=== PATIENT | female | born 1945 | race Caucasian/White ===

== ENCOUNTER 2017-01-24 20:05 | Inpatient (IN) | payer MEDICARE ==
[2017-01-23 23:45] VITALS: BP 153/71; PULSE 81; RESP 16; TEMP 96.6; O2SAT 95
[~2017-01-24] VITALS: Ht 157.5 cm; Wt 93.6 kg
[2017-01-24 20:14] VITALS: BP 165/82; PULSE 77; RESP 18; TEMP 98; O2SAT 96
[2017-01-24] MEDS ORDERED: NOVOLOGP2 SQ (20:29)
[2017-01-24] MEDS ORDERED: VITA200013 (20:29)
[2017-01-24] MEDS ORDERED: POTA10TA2 PO (20:29)
[2017-01-24] MEDS ORDERED: CART180C PO (20:29)
[2017-01-24] MEDS ORDERED: ALTA5CAP4 PO (20:29)
[2017-01-24] MEDS ORDERED: ASPI1TAB73 PO (20:29)
[2017-01-24] MEDS ORDERED: TOPR100T PO (20:29)
[2017-01-24] MEDS ORDERED: OMEP40CA2 PO (20:29)
--- NOTE | 2017-01-24 20:53 | PD ---
HPI Chief Complaint: Fall Time Seen by Provider: 20:08 Travel History International Travel<30 days: No Contact w/Intl Traveler<30days: No Traveled to known affect area: No History of Present Illness HPI The patient is a 72 year old female who presents to the [facility] emergency department with a history of stepping backward off of a curb when her shoe turned causing her to twist her ankle and fall to the ground. The patient had notable deformity of the right ankle with severe pain and tingling in her toes. Ambulance services were called and the patient was transported into this facility. The patient is placed in a box splint prior to arrival. The patient denies hitting her head or losing consciousness. She denies being on any blood thinners. She denies having any other extremity injuries associated with this. On review of systems, she denies any chest pain, chest pressure, shortness of breath, recent fevers, cough, congestion, rhinorrhea, vomiting, diarrhea, abdominal pain, urinary symptoms, or other neurologic symptoms. [facility] Past Medical History Narrative Medical The patient's past medical history is significant for diabetes mellitus, hypertension, history of a basal cell carcinoma removed from the nose, history of SVT,, hyperlipidemia, and acid reflux Heart Rhythm Problems: Yes (SVT) Cancer: Yes (SKIN) Diabetes: Yes (TYPE 2) Patient Takes Glucophage: No Diminished Hearing: No GERD: Yes Hypertension: Yes Tetanus Vaccination: Unknown Influenza Vaccination: No Ectopic : Yes Past Surgical History Narrative Surgical The patient's past surgical history is significant for basal cell skin carcinoma removal from the nose, tonsillar and adenoidectomy, breast reduction, cataract surgery. Eye Surgery: Yes (CATARACTS) Other Surgery: Yes (TNA, BREAST REDUCTION) Social History Alcohol Use: No Tobacco Use: No Substance Use: No Allergies-Medications (Allergen,Severity, Reaction): Coded Allergies: Egg Allergy (Verified Allergy, Severe, 01/24/17) Penicillin (Verified Allergy, Severe, 01/24/17) Sublimaze (Verified Allergy, Severe, 01/24/17) Reported Meds & Prescriptions Reported Meds & Active Scripts Active Reported Vitamin D (Cholecalciferol) 2,000 Unit Cap Novolog Inj (Insulin Aspart) 1,000 Unit/10 Ml Vial 12 Units SQ ACHS Max dose at bedtime ( ) units; sugars less than 70,(0) units; sugars 150-199,(2) units; sugars 200-249,(4) units; sugars 250-299,(7) units; sugars 300-349,(10) units; sugars greater than 349,(12)units Matias Aspirin EC Low Dose (Aspirin) 81 Mg Tabdr 81 Mg PO ONCE Altace (Ramipril) 5 Mg Cap 5 Mg PO DAILY Cartia Xt (Diltiazem ER 24 HR) 180 Mg Caper 180 Mg PO DAILY Potassium Chloride ER (Potassium Chloride) 10 Meq Tab 10 Meq PO DAILY Omeprazole 40 Mg Cap 40 Mg PO DAILY Toprol XL (Metoprolol Succinate) 100 Mg Tab 100 Mg PO DAILY Review of Systems Except as stated in HPI: all other systems reviewed are Neg General / Constitutional: No: Fever Eyes: No: Visual changes HENT: No: Headaches Cardiovascular: No: Chest Pain or Discomfort Respiratory: No: Shortness of Breath Gastrointestinal: No: Abdominal Pain Genitourinary: No: Dysuria Musculoskeletal: Positive: Arthralgias, Limited ROM, Edema, Pain Skin: No Rash Neurologic: No: Weakness Psychiatric: No: Depression Endocrine: No: Polydipsia Hematologic/Lymphatic: No: Easy Bruising Physical Exam Narrative General: The patient is well-developed well-nourished female, uncomfortable appearing on arrival related to right ankle pain. Head and Neck exam: Head is normocephalic atraumatic. Eyes: EOMI, pupils are equal round and reactive to light. Nose: Midline septum with pink mucous membranes Mouth: Dentition unremarkable. Moist mucus membranes. Posterior oropharynx is not erythematous. No tonsillar hypertrophy. Uvula midline. Airway patent. Neck: No palpable lymphadenopathy. No nuchal rigidity. No thyromegaly. Cardiovascular: Regular rate and rhythm without murmurs, gallops, or rubs. Lungs: Clear to auscultation bilaterally. No wheezes, rhonchi, or rales. Abdomen: Soft, without tenderness to palpation in all 4 quadrants of the abdomen. No guarding, rebound, or rigidity. Normal bowel sounds are audible. Extremities: No clubbing, cyanosis, or edema, except an area of interest. 2+ pulses in all 4 extremities. The patient has a box splint in place along the right lower extremity, the patient has deformity noted, with tenderness on palpation of the distal ankle. The patient has 2+ dorsalis pedis pulse. The patient has less than 3 second capillary refill. The patient reports having tingling to her toes. The patient is able to flex and extend her toes on examination. The patient has tenting of the skin related to the deformity and dislocation noted along the medial aspect of the right ankle. Back: No spinous process tenderness to palpation. No costovertebral angle tenderness to palpation. Neurologic Exam: Grossly nonfocal. Skin Exam: No rash noted. Intact skin that is warm and dry. Data Data Last Documented VS Vital Signs Date Time Temp Pulse Resp B/P Pulse Ox O2 Delivery O2 Flow Rate FiO2 01/24/17 21:10 98 3.00 01/24/17 21:10 Nasal Cannula 01/24/17 20:14 98.0 77 18 165/82 Orders Ankle, Limited (Ap&Lat) (01/24/17 20:15) Ice/Cold Pack (01/24/17 20:15) Electrocardiogram (01/24/17 21:05) Complete Blood Count With Diff (01/24/17 21:05) Basic Metabolic Panel (Bmp) (01/24/17 21:05) Prothrombin Time / Inr (Pt) (01/24/17 21:05) Act Partial Throm Time (Ptt) (01/24/17 21:05) Chest, Single Ap (01/24/17 21:05) Iv Access Insert/Monitor (01/24/17 21:05) Ecg Monitoring (01/24/17 21:05) Oximetry (01/24/17 21:05) Ankle, Complete ([id number]) (01/24/17 ) Propofol 200 Mg/20 Ml Inj (Diprivan 200 (01/24/17 21:15) Ondansetron Inj (Zofran Inj) (01/24/17 21:08) Ondansetron Inj (Zofran Inj) (01/24/17 21:45) Admit Order (Ed Use Only) (01/24/17 21:46) Consult Orthopedic (01/24/17 ) Fiberglass Short Leg Splint Ad (01/24/17 ) Fiberglass Sugartong Sp Ad Sl (01/24/17 ) Ice Cuff (01/24/17 ) Labs Laboratory Tests Test 01/24/17 21:15 White Blood Count 13.7 TH/MM3 Red Blood Count 4.42 MIL/MM3 Hemoglobin 13.1 GM/DL Hematocrit 37.1 % Mean Corpuscular Volume 84.1 FL Mean Corpuscular Hemoglobin 29.6 PG Mean Corpuscular Hemoglobin 35.2 % Concent Red Cell Distribution Width 13.1 % Platelet Count 322 TH/MM3 Mean Platelet Volume 7.6 FL Neutrophils (%) (Auto) 65.7 % Lymphocytes (%) (Auto) 25.0 % Monocytes (%) (Auto) 6.7 % Eosinophils (%) (Auto) 1.9 % Basophils (%) (Auto) 0.7 % Neutrophils # (Auto) 9.0 TH/MM3 Lymphocytes # (Auto) 3.4 TH/MM3 Monocytes # (Auto) 0.9 TH/MM3 Eosinophils # (Auto) 0.3 TH/MM3 Basophils # (Auto) 0.1 TH/MM3 CBC Comment DIFF FINAL Differential Comment Prothrombin Time 10.7 SEC Prothromb Time International 1.0 RATIO Ratio Activated Partial 24.3 SEC Thromboplast Time Sodium Level 138 MEQ/L Potassium Level 3.5 MEQ/L Chloride Level 104 MEQ/L Carbon Dioxide Level 25.2 MEQ/L Anion Gap 9 MEQ/L Blood Urea Nitrogen 12 MG/DL Creatinine 0.98 MG/DL Estimat Glomerular Filtration 56 ML/MIN Rate Random Glucose 122 MG/DL Calcium Level 9.1 MG/DL MDM Medical Decision Making Medical Screen Exam Complete: Yes Emergency Medical Condition: Yes Medical Record Reviewed: Yes Interpretation(s) Last Impressions Ankle X-Ray 01/24/172014 Signed Impressions: Service Date/Time: Tuesday, January 24, 2017 20:23 - CONCLUSION: 1. Fracture dislocation of the right ankle. Ritchie Vieira MD Differential Diagnosis Ankle dislocation, versus fracture, versus neurovascular injury of the ankle Narrative Course During the course of the patients emergency department visit, the patients history, examination, and differential diagnosis were reviewed with the patient. The patient had IV access obtained and blood work sent for analysis. The patient was placed on a media monitor with oximetry and blood pressure monitoring. The patient had an EKG done that shows a sinus rhythm heart rate of 85, nonspecific T-wave abnormalities, no acute ST segment elevation, T waves are inverted in lead 3, V1. The patient was initially provided normal saline IV fluids. The patient was provided propofol for sedation for relocation. The patients laboratory studies were reviewed and remarkable for a white count of 13.7, hemoglobin 13.1, platelets 322 with an unremarkable differential, BMP is remarkable for glucose of 122. PT 10.7, PTT 24.3. Radiology studies were reviewed and remarkable for a right ankle film that shows a fracture dislocation. The patient was provided procedural sedation for closed reduction of her right ankle fracture dislocation. The patient tolerated the procedure well. The patient was placed in a splint. Postreduction films revealed realignment of the fracture fragments and dislocated joint. The patient's case was discussed with orthopedic physician who recommended consultation with Dr. Middleton in the morning. The patients results were discussed with the patient, including the plan of care. I explained that further testing and/ or monitoring is indicated based on the patients history, examination, and/ or laboratory findings. Therefore, I recommended admission for additional evaluation. The patient expressed understanding and was agreeable with this plan. The patient was admitted to the hospital in stable condition and sent to a bed under the care of the [facility] hospitalist service. Procedures Procedure Narrative After the risks and benefits were discussed the following procedure was performed: MODERATE SEDATION: The patient was placed on a media monitor and pulse oximetry. An ambu bag and suction was immediately available at bedside. The patient was monitored by the nurse. Oxygen saturation , heart rate and blood pressure were monitored. Procedural sedation was acheived using propofol 40 mg times one dose. The patient was observed until awake and alert. Procedural Sedation time in attendance was 20 minutes. Closed reduction right ankle dislocation associated with fracture: Gentle traction was applied to the patient's foot while the patient's proximal leg was stabilized by the master motorcycle technician. The patient's fracture fragments and dislocation were easily reduced. The patient was placed in a posterior long leg splint. Post reduction x-rays revealed better alignment of the fracture fragments. Physician Communication Physician Communication I Spoke to Dr. Block regarding this patient's case. He recommended that the patient be admitted to the hospitalist service and not a consultation be placed with Dr. Middleton in the morning. I spoke to Dr. Pena regarding this patient's case. He did agree to admit the patient for further evaluation and treatment at this time. Diagnosis Primary Impression: Fracture dislocation of right ankle Qualified Code: S82.891A - Fracture dislocation of right ankle, closed, initial encounter Admitting Information Admitting Physician Requests: Admit Annabelle Duke MD January 24, 2017 20:53
--- NOTE | 2017-01-24 21:00 | RADRPT ---
EXAM DATE/TIME: 01/24/2017 20:23 [facility] COMPARISON: No previous studies available for comparison. INDICATIONS : Right ankle pain, fell MEDICAL HISTORY : None. SURGICAL HISTORY : None. ENCOUNTER: Initial ACUITY: 1 day PAIN SCORE: 8/10 LOCATION: Right Ankle FINDINGS: Two view examination was performed of the right ankle. There is medial and anterior dislocation of t he distal tibia with slightly comminuted fractures of the distal tibia and fibula. CONCLUSION: 1. Fracture dislocation of the right ankle. Ritchie Vieira MD on January 24, 2017 at 20:56 Board Certified Radiologist. This report was verified electronically.
[2017-01-24] MEDS ORDERED: ONDANSETRON HCL 4 MG/2 ML VIAL ONE (21:08)
[2017-01-24 21:10] VITALS: O2SAT 98
[2017-01-24] MEDS ORDERED: PROPOFOL 200 MG/20 ML AMP IV ONE (21:15)
[2017-01-24 21:30] LABS: BASOPHIL # 0.1 TH/MM3 (0-0.2); BASOPHIL % 0.7 % (0.0-2.0); EOSINOPHIL # 0.3 TH/MM3 (0-0.4); EOSINOPHIL % 1.9 % (0.0-4.0); HEMATOCRIT 37.1 % (35.0-46.0); HEMO FLAGS DIFF FINAL; LYMPHOCYTE # 3.4 TH/MM3 (1.0-4.8); MEAN CELL VOLUME 84.1 FL (80.0-100.0); MEAN CORPUSCULAR HEMOGLOBIN 29.6 PG (27.0-34.0); MEAN CORPUSCULAR HGB CONC 35.2 % (32.0-36.0); MONO % 6.7 % (0.0-8.0); NEUT % 65.7 % (16.0-70.0); PLATELET COUNT 322 TH/MM3 (150-450); RED BLOOD COUNT 4.42 MIL/MM3 (4.00-5.30); RED CELL DISTRIBUTION WIDTH 13.1 % (11.6-17.2); WHITE BLOOD COUNT 13.7 TH/MM3 (4.0-11.0)
[2017-01-24 21:42] LABS: APTT (PATIENT) 24.3 SEC (24.3-30.1); PROTHROMBIN TIME - PATIENT 10.7 SEC (9.8-11.6)
[2017-01-24] MEDS ORDERED: ONDANSETRON HCL 4 MG/2 ML VIAL IV ONE ×2 (21:45→22:30)
[2017-01-24] MEDS ORDERED: MORPHINE SULFATE 4 MG/ML INJ IV PUSH ONE (22:00)
[2017-01-24 22:03] LABS: BICARBONATE 25.2 MEQ/L (21.0-32.0); POTASSIUM 3.5 MEQ/L (3.5-5.1)
--- NOTE | 2017-01-24 22:29 | RADRPT ---
EXAM DATE/TIME: 01/24/2017 21:37 [facility] COMPARISON: No previous studies available for comparison. INDICATIONS : Short of breath. MEDICAL HISTORY : None. SURGICAL HISTORY : None. ENCOUNTER: Initial ACUITY: 1 day PAIN SCORE: 0/10 LOCATION: Bilateral chest FINDINGS: A single view of the chest demonstrates the lungs to be symmetrically aerated without evidence of mas s, infiltrate or effusion. The cardiomediastinal contours are unremarkable. Osseous structures are intact. CONCLUSION: No acute disease. Ritchie Vieira MD on January 24, 2017 at 22:27 Board Certified Radiologist. This report was verified electronically.
--- NOTE | 2017-01-24 22:33 | RADRPT ---
EXAM DATE/TIME: 01/24/2017 21:38 [facility] COMPARISON: No previous studies available for comparison. INDICATIONS : Post reduction, right ankle. MEDICAL HISTORY : None. SURGICAL HISTORY : None. ENCOUNTER: Subsequent ACUITY: 1 day PAIN SCORE: 8/10 LOCATION: Right ankle FINDINGS: Three view exam was performed of the right ankle. There is a fracture of the medial and lateral malle olus with subluxation medially of the distal tibia. Overlying cast. CONCLUSION: 1. Bimalleolar fracture with medial subluxation of the tibia. Ritchie Vieira MD on January 24, 2017 at 22:30 Board Certified Radiologist. This report was verified electronically.
[2017-01-24 22:40] VITALS: RESP 18; O2SAT 97
[2017-01-24] MEDS ORDERED: SODIUM CHLOR 0.9% 1000 ML INJ 1,000 ML IV SCH (22:47)
[2017-01-24] MEDS ORDERED: NALOXONE HCL 0.4 MG/ML AMP IV PRN (23:00)
[2017-01-24] MEDS ORDERED: MORPHINE SULFATE 4 MG/ML INJ IV PUSH PRN (23:00)
[2017-01-24] MEDS ORDERED: ONDANSETRON HCL 4 MG/2 ML VIAL IVP PRN (23:00)
[2017-01-24] MEDS ORDERED: SODIUM CHLORIDE 0.9% FLUSH 10 ML FLUSH IV FLUSH PRN (23:00)
[2017-01-24] MEDS: DEXTROSE 5% IN WATE 1000ML INJ 1,000 ML IV SCH (23:15)
[2017-01-24] MEDS ORDERED: GLUCAGON 1 MG/ML VIAL OTHER PRN (23:15)
[2017-01-24] MEDS ORDERED: DEXTROSE 50% IN WATER 50 ML VIAL(D50) IV PRN (23:15)
[2017-01-24] MEDS ORDERED: HYDROmorphone HCL PF 1 MG/ML VIAL IV PUSH PRN (23:15)
--- NOTE | 2017-01-24 23:20 | HHI.HP ---
[facility] Elisha Cabrera MD Admission Diagnosis right ankle fracture dislocation s/p fall Diagnoses: Chief Complaint: right ankle pain Travel History International Travel<30 Days: No Contact w/Intl Traveler <30 Da: No Traveled to Known Affected Are: No History of Present Illness The patient is a 72 year old female patient with past medical history which includes diabetes mellitus insulin-dependent, hypertension, history of a basal cell carcinoma removed from the nose, history of SVT, hyperlipidemia, and acid reflux. Patient reports she stepped backward off of a curb when her shoe turned causing her to twist her ankle and fall to the ground. Per ER documentation the patient had notable deformity of the right ankle with severe pain and tingling in her toes. The patient is currently in a box splint. Reports pain is tolerable 4 out of 10 at this point after the morphine. Patient however has had nausea and vomiting after the morphine. Patient reports intact sensation left lower extremity. The patient denies hitting her head or losing consciousness during the fall. Patient also denies any chest pain, shortness of breath, fevers chills cough congestion changes in appetite changes in weight. Review of Systems Except as stated in HPI: all other systems reviewed are Neg Past Family Social History Past Medical History diabetes mellitus, hypertension, history of a basal cell carcinoma removed from the nose, history of SVT, hyperlipidemia, and acid reflux Past Surgical History basal cell skin carcinoma removal from the nose, tonsillar and adenoidectomy, breast reduction, cataract surgery. Reported Medications Vitamin D (Cholecalciferol) 2,000 Unit Cap Novolog Inj (Insulin Aspart) 1,000 Unit/10 Ml Vial 12 Units SQ ACHS Max dose at bedtime ( ) units; sugars less than 70,(0) units; sugars 150-199,(2) units; sugars 200-249,(4) units; sugars 250-299,(7) units; sugars 300-349,(10) units; sugars greater than 349,(12)units Matias Aspirin EC Low Dose (Aspirin) 81 Mg Tabdr 81 Mg PO ONCE Altace (Ramipril) 5 Mg Cap 5 Mg PO DAILY Cartia Xt (Diltiazem ER 24 HR) 180 Mg Caper 180 Mg PO DAILY Potassium Chloride ER (Potassium Chloride) 10 Meq Tab 10 Meq PO DAILY Omeprazole 40 Mg Cap 40 Mg PO DAILY Toprol XL (Metoprolol Succinate) 100 Mg Tab 100 Mg PO DAILY Allergies: Coded Allergies: Egg Allergy (Verified Allergy, Severe, 01/24/17) Penicillin (Verified Allergy, Severe, 01/24/17) Sublimaze (Verified Allergy, Severe, 01/24/17) Active Ordered Medications Current Medications Medications (Trade) Dose Ordered Sig/Eleanor Route Start Time Stop Time Status Last Admin (NS 1000 ml Inj) 1,000 ml @ 42 mls/hr [id number] IV 01/24/17 22:47 (NS Flush) 2 ml UNSCH PRN IV FLUSH 01/24/17 23:00 (NS Flush) 2 ml BID IV FLUSH 01/25/17 09:00 (Tylenol) 650 mg Q4H PRN PO 01/24/17 23:00 (Zofran Inj) 4 mg Q6H PRN IVP 01/24/17 23:00 (Colace) 100 mg Q12HR PO 01/25/17 09:00 (Narcan Inj) 0.4 mg UNSCH PRN IV 01/24/17 23:00 (Morphine Inj) 2 mg Q4HR PRN IV PUSH 01/24/17 23:00 Family History Father at 85 secondary to melanoma Mother in 80s secondary to Alzheimer's Patient reports that grandmother had an [place] in her 80s Social History Patient lives alone in her recently in September of this year Rare EtOH use approximally 2-3 times per year Denies tobacco use now or in the past Denies illicit drug use now or in the past Physical Exam Vital Signs Vital Signs Date Time Temp Pulse Resp B/P Pulse Ox O2 Delivery O2 Flow Rate FiO2 01/24/17 22:40 18 97 Room Air 01/24/17 21:10 98 3.00 01/24/17 21:10 98 01/24/17 21:10 98 Nasal Cannula 3.00 01/24/17 20:14 98.0 77 18 165/82 96 Room Air Physical Exam GENERAL: This is a well-nourished, well-developed patient, in no apparent distress. SKIN: No rashes, ecchymoses or lesions. Cool and dry. With splint in place right lower extremity HEAD: Atraumatic. Normocephalic. No temporal or scalp tenderness. EYES: Extraocular motions intact. No scleral icterus. No injection or drainage. CARDIOVASCULAR: Regular rate and rhythm without murmurs, gallops, or rubs. RESPIRATORY: Clear to auscultation. Breath sounds equal bilaterally. No wheezes , rales, or rhonchi. GASTROINTESTINAL: Abdomen soft, non-tender, nondistended. No hepato-splenomegaly , or palpable masses. No guarding. MUSCULOSKELETAL: Extremities without clubbing, cyanosis, or edema. No joint tenderness, effusion, or edema noted. No calf tenderness. Negative Homans sign bilaterally. Splint in place right lower extremity with brisk cap refill and intact sensation NEUROLOGICAL: Awake and alert. No focal deficits identified Motor and sensory grossly within normal limits. Five out of 5 muscle strength in all muscle groups , with the exception of right lower extremity splint in place- patient is able to wiggle toes and has intact sensation right lower extremity. Normal speech. Laboratory Laboratory Tests Test 01/24/17 21:15 White Blood Count 13.7 Red Blood Count 4.42 Hemoglobin 13.1 Hematocrit 37.1 Mean Corpuscular Volume 84.1 Mean Corpuscular Hemoglobin 29.6 Mean Corpuscular Hemoglobin 35.2 Concent Red Cell Distribution Width 13.1 Platelet Count 322 Mean Platelet Volume 7.6 Neutrophils (%) (Auto) 65.7 Lymphocytes (%) (Auto) 25.0 Monocytes (%) (Auto) 6.7 Eosinophils (%) (Auto) 1.9 Basophils (%) (Auto) 0.7 Neutrophils # (Auto) 9.0 Lymphocytes # (Auto) 3.4 Monocytes # (Auto) 0.9 Eosinophils # (Auto) 0.3 Basophils # (Auto) 0.1 CBC Comment DIFF FINAL Differential Comment Prothrombin Time 10.7 Prothromb Time International 1.0 Ratio Activated Partial 24.3 Thromboplast Time Sodium Level 138 Potassium Level 3.5 Chloride Level 104 Carbon Dioxide Level 25.2 Anion Gap 9 Blood Urea Nitrogen 12 Creatinine 0.98 Estimat Glomerular Filtration 56 Rate Random Glucose 122 Calcium Level 9.1 Result Diagram: 01/24/17211401/24/172114 Imaging Last Impressions Chest X-Ray 01/24/172104 Signed Impressions: Service Date/Time: Tuesday, January 24, 2017 21:37 - CONCLUSION: No acute disease. Ritchie Vieira MD Ankle X-Ray 01/24/172014 Signed Impressions: Service Date/Time: Tuesday, January 24, 2017 20:23 - CONCLUSION: 1. Fracture dislocation of the right ankle. Ritchie Vieira MD Assessment and Plan Problem List: (1) Fracture dislocation of right ankle ICD Code: S82.891A Status: Acute Assessment and Plan The patient is a 72 year old female patient with past medical history which includes diabetes mellitus insulin-dependent, hypertension, history of a basal cell carcinoma removed from the nose, history of SVT,, hyperlipidemia, and acid reflux. Patient reports she stepped backward off of a curb when her shoe turned causing her to twist her ankle and fall to the ground. Per ER documentation the patient had notable deformity of the right ankle with severe pain and tingling in her toes. Right ankle fracture and dislocation Right ankle x-ray reviewed and reveals: Fracture with dislocation of the right ankle Bedside Closed reduction right ankle dislocation associated with fracture by ER physician patient currently in splint ER physician discussed with Dr. Block orthopedic surgery Patient nothing by mouth after midnight consult placed orthopedic surgery Dilaudid IV for pain as patient is having nausea and vomiting with morphine Diabetes mellitus type 1 chronic Accu-Cheks before meals at bedtime with low-dose sliding scale insulin coverage D5 normal saline at 42 cc per hour this patient is nothing by mouth Other chronic stable medical conditions include hypertension, SVT, GERD continue home medications as indicated DVT prophylaxis with heparin subQ Discussed with ER physician, nursing, patient, son at bedside and Dr. Pena Physician Certification 2 Midnight Certification Type: Admission for Inpatient Services Order for Inpatient Services The services are ordered in accordance with Medicare regulations or non- Medicare payer requirements, as applicable. In the case of services not specified as inpatient-only, they are appropriately provided as inpatient services in accordance with the 2-midnight benchmark. Estimated LOS (days): 3 days is the estimated time the patient will need to remain in the hospital, assuming treatment plan goals are met and no additional complications. Post-Hospital Plan: Home Problem Qualifiers (1) Fracture dislocation of right ankle: Qualified Code: S82.891A - Fracture dislocation of right ankle, closed, initial encounter Adalgisa Eastman January 24, 2017 23:20 initial encounter Adalgisa Eastman January 24, 2017 23:20
[2017-01-24 23:50] VITALS: BP 153/71; PULSE 81; RESP 16; TEMP 96.6; O2SAT 95
[2017-01-25] MEDS: HEPARIN SODIUM - SQ 10,000 UNITS/ML VIAL SQ SCH ×3 (01:00→17:00)
[2017-01-25] MEDS ORDERED: LACTATED RINGER'S 1000 ML IV PRN (01:15)
[2017-01-25] MEDS ORDERED: CHLORHEXIDINE GLUCONATE 2 % 1 PACK (2 CLOTHS) TOPICAL PRN (01:15)
[2017-01-25] MEDS ORDERED: POVIDONE IODINE 5% (ANTISEPSIS KIT) 4 APPLICATIONS EACH NARE PRN (01:15)
[2017-01-25 04:00] VITALS: BP 135/67; PULSE 89; RESP 17; TEMP 96.9; O2SAT 96
[2017-01-25] MEDS ORDERED: METOCLOPRAMIDE HCL 10 MG/2 ML VIAL IV PUSH ONE (04:45)
--- NOTE | 2017-01-25 06:39 | PD.ORT.PN ---
Subjective Subjective Remarks s/p fall at home right ankle pain no other complaints. Objective Vitals Vital Signs Date Time Temp Pulse Resp B/P Pulse Ox O2 Delivery O2 Flow Rate FiO2 01/25/17 04:00 96.9 89 17 135/67 96 01/24/17 23:50 96.6 81 16 153/71 95 01/24/17 22:40 18 97 Room Air 01/24/17 21:10 98 3.00 01/24/17 21:10 98 01/24/17 21:10 98 Nasal Cannula 3.00 01/24/17 20:14 98.0 77 18 165/82 96 Room Air I/O 01/24/17 01/24/17 01/24/17 01/25/17 01/25/17 01/25/17 07:00 15:00 23:00 07:00 15:00 23:00 Intake Total 0 ml Balance 0 ml Intake Oral 0 ml # Voids 1 Result Diagram: 01/24/17211401/24/172114 Other Results Laboratory Tests Test 01/24/17 21:15 Prothrombin Time 10.7 SEC (9.8-11.6) Prothromb Time International 1.0 RATIO Ratio Imaging Last 24 hours Impressions Chest X-Ray 01/24/172104 Signed Impressions: Service Date/Time: Tuesday, January 24, 2017 21:37 - CONCLUSION: No acute disease. Ritchie Vieira MD Ankle X-Ray 01/24/172014 Signed Impressions: Service Date/Time: Tuesday, January 24, 2017 20:23 - CONCLUSION: 1. Fracture dislocation of the right ankle. Ritchie Vieira MD Objective Remarks RLE: +short leg splint. NVI Assessment & Plan Assessment and Plan 1) Right Trimalleolar Ankle Fx -npo -consents -surgery today Dmitry Erickson January 25, 2017 06:39
[2017-01-25] MEDS ORDERED: CALCTAB19 PO (06:41)
[2017-01-25] MEDS ORDERED: VITA2000 PO (06:41)
[2017-01-25] MEDS ORDERED: HYDR-3288 PO (06:41)
[2017-01-25] MEDS ORDERED: ERGO1CAP30 PO (06:41)
[2017-01-25 07:41] LABS: AUTOMATED NEUTROPHIL # 10.4 TH/MM3 (1.8-7.7); BASOPHIL % 0.2 % (0.0-2.0); HEMATOCRIT 38.4 % (35.0-46.0); HEMO FLAGS DIFF FINAL; LYMPH % 11.5 % (9.0-44.0); LYMPHOCYTE # 1.4 TH/MM3 (1.0-4.8); MEAN CELL VOLUME 85.6 FL (80.0-100.0); MEAN CORPUSCULAR HEMOGLOBIN 28.5 PG (27.0-34.0); MEAN CORPUSCULAR HGB CONC 33.3 % (32.0-36.0); MONO % 5.5 % (0.0-8.0); NEUT % 82.8 % (16.0-70.0); PLATELET COUNT 292 TH/MM3 (150-450); RED BLOOD COUNT 4.49 MIL/MM3 (4.00-5.30); RED CELL DISTRIBUTION WIDTH 13.8 % (11.6-17.2); WHITE BLOOD COUNT 12.6 TH/MM3 (4.0-11.0)
--- NOTE | 2017-01-25 07:54 | MB ---
cc: DOMINIK MERRILL,MAINOR DATE OF CONSULTATION: 01/25/2017 REASON FOR CONSULTATION Right ankle fracture-dislocation. CONSULTING PHYSICIAN Dr. Pena HISTORY OF PRESENT ILLNESS Genevieve is a 72-year-old female who was outside of her house. She stepped backwards off of a curb. She stepped on an uneven surface causing her ankle to twist. She had immediate pain and deformity. She had no dizziness, syncope or loss of consciousness. She was unable to stand or ambulate. She presented to the emergency room where x-rays revealed a fracture-dislocation of her ankle. She underwent closed reduction in the emergency department. Her only complaint is her right ankle. She denies any other injuries. She does have a history of diabetes. PAST MEDICAL HISTORY ILLNESSES 1. Diabetes. 2. Hypertension. 3. Basal cell carcinoma. 4. High cholesterol. 5. Acid reflux. SURGERIES 1. Skin cancer removal. 2. Tonsillectomy. 3. Breast reduction. 4. Cataract surgery. MEDICATIONS 1. Vitamin-D. 2. Insulin. 3. Aspirin. 4. Altace. 5. Potassium. 6. Omeprazole. 7. Toprol. ALLERGIES 1. PENICILLIN. 2. SUBLIMAZE. 3. EGGS. FAMILY HISTORY Positive for melanoma in her father and Alzheimer's disease in her mother. SOCIAL HISTORY The patient lives alone. Her recently . She denies tobacco or drug use. She rarely drinks alcohol. REVIEW OF SYSTEMS The patient denies headache, visual changes, neck pain, chest pain, shortness of breath, abdominal pain, nausea, vomiting or recent weight loss. She complains of right ankle pain. Pain is worse with movement. PHYSICAL EXAMINATION GENERAL: The patient is a well-developed, well-nourished 72-year-old female who is moderately overweight. She is awake and alert. VITAL SIGNS: Temperature 96.9, pulse 89, respirations 17, blood pressure 135/67. O2 sats are 96% on room air. HEAD: The patient is normocephalic. Pupils are equal. NECK: Soft, nontender. Trachea is midline. ABDOMEN: Soft, nontender, nondistended. EXTREMITIES: Examination of bilateral upper extremities reveals no pain with shoulder, elbow or wrist motion. She has good capillary refill in all fingers. Radial pulses are palpable. Sensation is intact to both hands. Examination of left leg reveals no pain with hip, knee or ankle motion. Skin is intact. Dorsalis pedis pulse is palpable. Examination of right leg reveals no pain with hip or knee motion. She is diffusely tender around the ankle. Mild swelling is present. Skin is intact. She has good capillary refill in her toes. X-RAYS X-rays of right ankle were reviewed. X-rays reveal a displaced right ankle trimalleolar fracture. IMPRESSION 1. Diabetes. 2. Hypertension. 3. Displaced right ankle trimalleolar fracture. PLAN The treatment options were discussed with the patient. At this point I would recommend open reduction, internal fixation of right ankle. Risks of surgery include bleeding, infection, injuries to arteries, nerves and blood vessels, nonunion, malunion, painful hardware, as well as medical complications including blood clot, stroke, heart attack and . All questions were answered. I will plan on surgery today. A mid-level provider in my office, nurse practitioner or PA, may see this patient on a follow-up basis and continue to implement the objective of this plan including: Starting or adjusting medications, injections of muscle, tendon, bursa or joints, cast application, orthotic or brace application, physical therapy, further radiographic studies including x-ray, MRI, CT, ultrasounds or bone scan, vascular studies, neurologic studies, or other specialist consultations, and proceeding with surgical management as appropriate. MD COSME Singh/MOSES /6:47 AM /7:47 AM
[2017-01-25 08:00] VITALS: BP 144/71; PULSE 96; RESP 19; TEMP 97.1; O2SAT 95
[2017-01-25] MEDS: INSULIN ASPART SUPPLEMENTAL SCALE SQ SCH ×4 (08:00→20:32)
[2017-01-25] MEDS: DOCUSATE SODIUM 100 MG CAP PO SCH ×2 (08:03→20:30)
[2017-01-25] MEDS: PANTOPRAZOLE SOD 40 MG DELAYED RELEASE TAB PO SCH (08:03)
[2017-01-25 08:20] LABS: BICARBONATE 24.1 MEQ/L (21.0-32.0); POTASSIUM 4.5 MEQ/L (3.5-5.1)
[2017-01-25] MEDS: SODIUM CHLORIDE 0.9% FLUSH 10 ML FLUSH IV FLUSH SCH ×2 (09:00→20:30)
[2017-01-25] MEDS: RAMIPRIL 5 MG CAP PO SCH (09:44)
[2017-01-25] MEDS: METOPROLOL SUCCINATE 50 MG EXTENDED RELEASE TAB PO SCH (09:44)
[2017-01-25] MEDS: DILTIAZEM-CD 180 MG CAP ER PO SCH (09:45)
[2017-01-25] MEDS ORDERED: GENTAMICIN SULFATE 80 MG/2 ML VIAL ONE (09:53)
[2017-01-25] MEDS ORDERED: BUPIVACAINE/EPINEPHRINE 0.25% 50 ML VIAL ONE (09:53)
--- NOTE | 2017-01-25 11:44 | HHI.PR ---
Subjective Remarks Patient seen for f/u right ankle fx. 01/25/17-patient seen this AM. No acute events overnight. Vitals essentially WNL this AM. Genevieve requests reglan for nausea. Apparently has significant N/V with narcotic pain meds and this is the only thing that helps. No other complaints. Denies any CP, SOB, or F/C. Objective Vitals Vital Signs Date Time Temp Pulse Resp B/P Pulse Ox O2 Delivery O2 Flow Rate FiO2 01/25/17 08:00 97.1 96 19 144/71 95 01/25/17 04:00 96.9 89 17 135/67 96 01/24/17 23:50 96.6 81 16 153/71 95 01/24/17 22:40 18 97 Room Air 01/24/17 21:10 98 3.00 01/24/17 21:10 98 01/24/17 21:10 98 Nasal Cannula 3.00 01/24/17 20:14 98.0 77 18 165/82 96 Room Air I/O 01/24/17 01/24/17 01/24/17 01/25/17 01/25/17 01/25/17 07:00 15:00 23:00 07:00 15:00 23:00 Intake Total 0 ml Balance 0 ml Intake Oral 0 ml # Voids 1 Result Diagram: 01/25/17 0644 01/25/17 0644 Objective Remarks GENERAL: This is a well-nourished, well-developed patient, in no apparent distress. SKIN: No rashes, ecchymoses or lesions. Cool and dry. CARDIOVASCULAR: Regular rate and rhythm without murmurs, gallops, or rubs. RESPIRATORY: Clear to auscultation. Breath sounds equal bilaterally. No wheezes , rales, or rhonchi. GASTROINTESTINAL: Abdomen soft, non-tender, nondistended. No hepato-splenomegaly , or palpable masses. No guarding. MUSCULOSKELETAL: Extremities without clubbing, cyanosis, or edema. No joint tenderness, effusion, or edema noted. No calf tenderness. Negative Homans sign bilaterally. Splint in place right lower extremity with brisk cap refill and intact sensation. Able to wiggle toes on the right. NEUROLOGICAL: Awake and alert. Moves extremities well. A/P Problem List: (1) Fracture dislocation of right ankle ICD Code: S82.891A Status: Acute (2) DM (diabetes mellitus) ICD Code: E11.9 Status: Acute Assessment and Plan The patient is a 72 year old female patient with past medical history which includes diabetes mellitus insulin-dependent, hypertension, history of a basal cell carcinoma removed from the nose, history of SVT,, hyperlipidemia, and acid reflux. Patient reports she stepped backward off of a curb when her shoe turned causing her to twist her ankle and fall to the ground. Per ER documentation the patient had notable deformity of the right ankle with severe pain and tingling in her toes. Right ankle fracture and dislocation -Right ankle x-ray reviewed and reveals: Fracture with dislocation of the right ankle -Bedside Closed reduction right ankle dislocation associated with fracture by ER physician patient currently in splint -Orthopedic surgery consulted. Have recommended ORIF. Keep NPO. -Dilaudid IV PRN for pain -will add PRN reglan for N/V Diabetes mellitus type 1 chronic -Accu-Cheks before meals at bedtime with low-dose sliding scale insulin coverage -D5 normal saline at 42 cc per hour this patient is nothing by mouth Other chronic stable medical conditions: hypertension, SVT, GERD -continue home medications as indicated DVT prophylaxis: heparin subQ (hold ~24 hours pre-procedure) Problem Qualifiers (1) Fracture dislocation of right ankle: Qualified Code: S82.891A - Fracture dislocation of right ankle, closed, initial encounter Bharat Horne MD R3 January 25, 2017 11:43
[2017-01-25 12:00] VITALS: BP 121/65; PULSE 89; RESP 18; TEMP 96.2; O2SAT 96
[2017-01-25] MEDS ORDERED: PHENYLEPH/NS 1000 MCG/10 ML SYR IV ONE (12:00)
[2017-01-25] MEDS ORDERED: ePHEDrine/NS 25 MG/5 ML SYR IV ONE (12:00)
[2017-01-25] MEDS ORDERED: ONDANSETRON HCL 4 MG/2 ML VIAL IV PUSH ONE (12:00)
[2017-01-25] MEDS ORDERED: SODIUM CHLOR 0.9% 250 ML INJ 500 ML IV ONE (12:00)
[2017-01-25] MEDS ORDERED: PROPOFOL 200 MG/20 ML AMP IV ONE (12:00)
[2017-01-25] MEDS ORDERED: METOCLOPRAMIDE HCL 10 MG/2 ML VIAL IV PUSH PRN (13:00)
[2017-01-25] MEDS ORDERED: VANCOMYCIN HCL 1000 MG VIAL ONE (14:06)
[2017-01-25] MEDS ORDERED: CLINDAMYCIN PHOS 900 MG/6 ML VIAL ONE (14:09)
[2017-01-25] MEDS ORDERED: DEXAMETHASONE SOD PHOS 4 MG/ML VIAL ONE (14:41)
[2017-01-25] MEDS ORDERED: ACETAMINOPHEN 1000 MG/100 ML VIAL IV ONE (14:41)
[2017-01-25] MEDS ORDERED: APREPITANT 40 MG CAP ONE (14:41)
[2017-01-25] MEDS ORDERED: MIDAZOLAM HCL 2 MG/2 ML VIAL ONE (14:41)
[2017-01-25] MEDS ORDERED: FAMOTIDINE 20 MG/2 ML VIAL ONE (14:42)
--- NOTE | 2017-01-25 14:50 | EKG ---
Date Performed: 01/24/2017 Time Performed: 22:19:51 PTAGE: 72 years EKG: Sinus rhythm NONSPECIFIC T-WAVE ABNORMALITY BORDERLINE ECG NO PREVIOUS TRACING DOCTOR: Pennie Ying Interpretating Date/Time 01/25/2017 14:48:51
[2017-01-25] MEDS ORDERED: HYDROmorphone HCL PF 2 MG/ML VIAL ONE (14:55)
--- NOTE | 2017-01-25 16:23 | PD.OP ---
cc: Krishan Middleton MD Operative Report Date of Surgery: January 25, 2017 Preoperative Diagnosis: right ankle trimalleolar fracture Postoperative Diagnosis: Same Procedure: Open reduction internal fixation right ankle trimalleolar fracture, stress exam syndesmosis Anesthesia: Gen. Surgeon: Krishan Middleton Consumer Advocate(s): Mario Smith PA-C The surgical procedure was assisted by my physician assistant basketball coach. My P.A. presence was necessary throughout this case for the manipulation and positioning of the surgical extremity. My P.A. was assisting me throughout the duration of this procedure. The skill set of a physician assistant basketball coach was medically necessary to complete this procedure. During the surgical case the chief technologist was working at the back table and the physician assistant basketball coach was directly assisting me. Operation and Findings: Patient was seen and evaluated preoperatively and found to have a displaced right ankle trimalleolar fracture. Informed consent was obtained after a detailed discussion of risk and benefits of surgery. The operative site was marked. Patient was brought to the OR, placed on the OR table, and given IV sedation and general endotracheal anesthesia. IV antibiotics were given preoperatively. A timeout procedure was performed. The left leg was prepped with alcohol followed by Hibiclens and draped in the usual sterile fashion. Attention was turned towards the distal fibula. A four-inch incision was made over the distal fibula. The subcutaneous tissue was dissected with Bovie. The fracture site was visualized. The fracture site was cleaned with curets. The fracture was now reduced. The fracture keyed into anatomic alignment. K-wires were used to h old provisional fixation. 2 lag screws were placed to compress fracture. A Synthes plate was selected. The plate was provisionally held to bone with K-wires. 3.5 cortical screws were used to compress the plate to bone. Multiple screws were placed above and below the fracture. Next attention was turned towards the medial malleolus. The medial malleolus supposed through a 3 cm incision. Saphenous vein was retracted. Fracture was visualized. Fracture was cleaned with curettes. Fracture was now reduced and keyed into anatomic alignment. K wires were used to hold provisional fixation. 2 guidepins for the 4.0 cannulated screws were placed in a retrograde fashion across the fracture. Fluoroscopy was used to confirm guidepin placement. Cannulated drill was placed over the guidepin. 2 appropriate length screws were now placed. Good compression was applied. Fluoroscopy confirmed well aligned fracture with well-placed hardware. The posterior malleolus fracture was now visualized. There was minimal articular surface on the posterior malleolus fragment. This was left in place. Next, attention was turned to the syndesmosis. The syndesmosis was stressed. There was no widening of the syndesmosis with external rotation of the ankle. Incisions were thoroughly irrigated. The subcutaneous tissue was closed with 3- 0 PDS and the skin was closed with 3-0 nylon. Sterile dressings were applied. A well molded well-padded splint was applied. The patient was transferred to Recovery in stable condition. Needle and sponge counts were correct. Krishan Middleton MD January 25, 2017 16:23
[2017-01-25] MEDS ORDERED: Post-op Orders (for Pharmacy) MISC XX ONE (16:30)
[2017-01-25] MEDS ORDERED: MORPHINE SULFATE 4 MG/ML INJ IV PUSH PRN (17:00)
[2017-01-25] MEDS ORDERED: DO NOT ADM ANY ANTICOAGULANT DRUGS PRN (17:15)
[2017-01-25] MEDS: DEXTROSE 5% IN WATE 1000ML INJ 1,000 ML IV SCH (18:33)
--- NOTE | 2017-01-25 18:35 | RADRPT ---
EXAM DATE/TIME: 01/25/2017 16:10 [facility] COMPARISON: ANKLE RIGHT LIMITED (AP&LAT), January 24, 2017, 20:23. INDICATIONS : ORIF right ankle. MEDICAL HISTORY : None. SURGICAL HISTORY : None. ENCOUNTER: Subsequent ACUITY: 2 days PAIN SCORE: Non-responsive. LOCATION: Right ankle FINDINGS: AP and lateral cone-down views of the right ankle were obtained using a matrix camera demonstrate int erval placement of a screw plate fixation device along the distal fibula transfixing the fracture def ormity. There are 2 lag-type screws extending through the medial malleolus. The fracture fragments ar e in near-anatomic alignment. The ankle mortise is congruent. There is soft tissue swelling. CONCLUSION: Status post open rigid internal fixation. Juan Ha MD on January 25, 2017 at 18:33 Board Certified Radiologist. This report was verified electronically.
[2017-01-25 20:50] VITALS: BP 131/74; PULSE 78; RESP 18; TEMP 95.7; O2SAT 96
[2017-01-25 21:31] VITALS: O2SAT 97
[2017-01-25 23:30] VITALS: BP 109/52; PULSE 80; RESP 18; TEMP 96.3; O2SAT 95
[2017-01-26] MEDS: ACETAMINOPHEN 325 MG TAB PO PRN ×4 (00:04→18:02)
[2017-01-26] MEDS: HEPARIN SODIUM - SQ 10,000 UNITS/ML VIAL SQ SCH ×3 (00:08→18:02)
[2017-01-26 04:14] VITALS: BP 123/62; PULSE 79; RESP 18; TEMP 96.4; O2SAT 96
[2017-01-26 06:15] LABS: HEMATOCRIT 34.5 % (35.0-46.0); MEAN CELL VOLUME 84.7 FL (80.0-100.0); MEAN CORPUSCULAR HEMOGLOBIN 29.6 PG (27.0-34.0); MEAN CORPUSCULAR HGB CONC 34.9 % (32.0-36.0); PLATELET COUNT 286 TH/MM3 (150-450); RED BLOOD COUNT 4.08 MIL/MM3 (4.00-5.30); RED CELL DISTRIBUTION WIDTH 13.2 % (11.6-17.2); REVIEW FLAG FINAL; WHITE BLOOD COUNT 10.3 TH/MM3 (4.0-11.0)
[2017-01-26] MEDS: INSULIN ASPART SUPPLEMENTAL SCALE SQ SCH ×4 (06:16→21:00)
[2017-01-26 06:42] LABS: BICARBONATE 24.3 MEQ/L (21.0-32.0); POTASSIUM 4.2 MEQ/L (3.5-5.1)
[2017-01-26 08:00] VITALS: BP 116/74; PULSE 73; RESP 18; TEMP 96.4; O2SAT 96
[2017-01-26] MEDS: METOPROLOL SUCCINATE 50 MG EXTENDED RELEASE TAB PO SCH (08:23)
[2017-01-26] MEDS: RAMIPRIL 5 MG CAP PO SCH (08:23)
[2017-01-26] MEDS: PANTOPRAZOLE SOD 40 MG DELAYED RELEASE TAB PO SCH (08:23)
[2017-01-26] MEDS: DOCUSATE SODIUM 100 MG CAP PO SCH ×2 (08:23→21:00)
[2017-01-26] MEDS: DILTIAZEM-CD 180 MG CAP ER PO SCH (08:23)
[2017-01-26] MEDS: SODIUM CHLORIDE 0.9% FLUSH 10 ML FLUSH IV FLUSH SCH ×2 (08:24→21:00)
--- NOTE | 2017-01-26 11:47 | HHI.PR ---
Subjective Remarks Pt doing well. Only taking tylenol. Denies any CP/SOB/N/V Discussed w RN, no concerns at this time. Objective Vitals Vital Signs Date Time Temp Pulse Resp B/P Pulse Ox O2 Delivery O2 Flow Rate FiO2 01/26/17 08:00 96.4 73 18 116/74 96 01/26/17 04:14 96.4 79 18 123/62 96 01/25/17 23:30 96.3 80 18 109/52 95 01/25/17 21:31 97 Nasal Cannula 3.00 01/25/17 20:50 95.7 78 18 131/74 96 01/25/17 18:00 97.0 73 12 128/62 96 Nasal Cannula 2 01/25/17 17:45 72 12 129/55 96 Nasal Cannula 2 01/25/17 17:30 71 12 120/58 96 Nasal Cannula 2 01/25/17 17:15 72 12 143/60 95 Nasal Cannula 2 01/25/17 17:00 76 12 128/63 95 Nasal Cannula 4 01/25/17 16:57 97.0 77 12 140/67 96 Nasal Cannula 4 01/25/17 12:00 96.2 89 18 121/65 96 I/O 01/25/17 01/25/17 01/25/17 01/26/17 01/26/17 01/26/17 07:00 15:00 23:00 07:00 15:00 23:00 Intake Total 0 ml 1575 ml 980 ml Output Total 50 ml Balance 0 ml 1525 ml 980 ml Intake Oral 0 ml 330 ml 360 ml IV Total 245 ml 620 ml Other 1000 ml Output Estimated Blood Loss 50 ml # Voids 1 1 1 4 # Bowel Movements 0 0 Result Diagram: 01/26/17 0552 01/26/17 0552 Imaging Last Impressions Ankle X-Ray 01/25/17 0000 Signed Impressions: Service Date/Time: Wednesday, January 25, 2017 16:10 - CONCLUSION: Status post open rigid internal fixation. Juan Ha MD Chest X-Ray 01/24/172104 Signed Impressions: Service Date/Time: Tuesday, January 24, 2017 21:37 - CONCLUSION: No acute disease. Ritchie Vieira MD Objective Remarks GENERAL: This is a well-nourished, well-developed patient, in no apparent distress. CARDIOVASCULAR: Regular rate and rhythm without murmurs RESPIRATORY: Clear to auscultation. Breath sounds equal bilaterally. No wheezes GASTROINTESTINAL: Abdomen soft, non-tender, nondistended. No guarding. MUSCULOSKELETAL: Extremities without edema. Splint in place right lower extremity with brisk cap refill and intact sensation. Able to wiggle toes on the right. NEUROLOGICAL: Awake and alert. Moves extremities well. A/P Problem List: (1) Fracture dislocation of right ankle ICD Code: S82.891A Status: Acute (2) DM (diabetes mellitus) ICD Code: E11.9 Status: Acute Assessment and Plan The patient is a 72 year old female patient with past medical history which includes diabetes mellitus insulin-dependent, hypertension, history of a basal cell carcinoma removed from the nose, history of SVT,, hyperlipidemia, and acid reflux. Patient reports she stepped backward off of a curb when her shoe turned causing her to twist her ankle and fall to the ground. Per ER documentation the patient had notable deformity of the right ankle with severe pain and tingling in her toes. Right ankle fracture and dislocation -Right ankle x-ray reviewed and reveals: Fracture with dislocation of the right ankle -Bedside Closed reduction right ankle dislocation associated with fracture by ER physician patient currently in splint -Orthopedic evaluated the pt and she is s/p ORIF right ankle trimalleolar fx POD 1 -pain controlled w tylenol, has other pain meds available prn. -on PRN reglan for N/V Diabetes mellitus type 1 chronic -Accu-Cheks before meals at bedtime with low-dose sliding scale insulin coverage -D5 normal saline at 42 cc per hour this patient is nothing by mouth Other chronic stable medical conditions: hypertension, SVT, GERD -continue home medications as indicated DVT prophylaxis: heparin Discharge Planning awaiting final recs from ortho Problem Qualifiers (1) Fracture dislocation of right ankle: Qualified Code: S82.891A - Fracture dislocation of right ankle, closed, initial encounter Henny Francois MD January 26, 2017 11:47
[2017-01-26 12:00] VITALS: BP 103/56; PULSE 67; RESP 18; TEMP 98.7; O2SAT 96
[2017-01-26 13:54] VITALS: O2SAT 97
[2017-01-26 16:00] VITALS: BP 119/74; PULSE 72; RESP 20; TEMP 97.8; O2SAT 94
[2017-01-26 19:00] VITALS: BP 111/66; PULSE 77; RESP 18; TEMP 96.2; O2SAT 99
[2017-01-26] MEDS: DEXTROSE 5% IN WATE 1000ML INJ 1,000 ML IV SCH (22:53)
[2017-01-27] VITALS: BP 141/77; PULSE 88; RESP 18; TEMP 96.2; O2SAT 97
[2017-01-27] MEDS: ACETAMINOPHEN 325 MG TAB PO PRN (00:24)
[2017-01-27] MEDS: HEPARIN SODIUM - SQ 10,000 UNITS/ML VIAL SQ SCH ×3 (00:36→17:19)
[2017-01-27] MEDS: ACETAMINOPHEN/HYDROcodone 325 MG/7.5 MG TAB PO PRN ×2 (04:45→09:27)
[2017-01-27] MEDS: INSULIN ASPART SUPPLEMENTAL SCALE SQ SCH ×3 (06:29→16:00)
--- NOTE | 2017-01-27 07:31 | PD.ORT.PN ---
Subjective Subjective Remarks Resting comfortably. Pain controlled Objective Vitals Vital Signs Date Time Temp Pulse Resp B/P Pulse Ox O2 Delivery O2 Flow Rate FiO2 01/27/17 05:45 18 01/27/17 00:00 96.2 88 18 141/77 97 01/26/17 20:09 18 01/26/17 19:00 96.2 77 18 111/66 99 01/26/17 18:12 Nasal Cannula 3.00 01/26/17 16:00 97.8 72 20 119/74 94 01/26/17 13:54 97 Nasal Cannula 3.00 01/26/17 12:00 98.7 67 18 103/56 96 01/26/17 08:00 96.4 73 18 116/74 96 I/O 01/26/17 01/26/17 01/26/17 01/27/17 01/27/17 01/27/17 07:00 15:00 23:00 07:00 15:00 23:00 Intake Total 980 ml 200 ml 480 ml 250 ml Balance 980 ml 200 ml 480 ml 250 ml Intake Oral 360 ml 480 ml 250 ml IV Total 620 ml 200 ml # Voids 4 3 3 # Bowel Movements 0 0 0 Result Diagram: 01/26/17 0552 01/26/17 0552 Imaging Last 24 hours Impressions Chest X-Ray 01/24/172104 Signed Impressions: Service Date/Time: Tuesday, January 24, 2017 21:37 - CONCLUSION: No acute disease. Ritchie Vieira MD Ankle X-Ray 01/24/172014 Signed Impressions: Service Date/Time: Tuesday, January 24, 2017 20:23 - CONCLUSION: 1. Fracture dislocation of the right ankle. Ritchie Vieira MD Objective Remarks Right lower extremity: Splint intact. Intact sensation distally in all toes. Good capillary refills Assessment & Plan Assessment and Plan 1) Right Trimalleolar Ankle Fx ORIF POD 1 Nonweightbearing right lower extremity Maintain splint Elevate Discharged home today if cleared by physical therapy. She does live alone but has help affecting come into the house to help her during the day Follow-up with Dr. Middleton or PA in 2 weeks Juan Smith Jr. January 27, 2017 07:31
--- NOTE | 2017-01-27 07:32 | HHI.FF ---
Face to Face Verification Diagnosis: (1) Fracture dislocation of right ankle Physical Therapy Gait training, Safety evaluation Right LE Weight Bearing: Non WB S/P Spinal Fusion: Gait training with walker I have seen patient Genevieve Shoemaker on 01/27/17. My clinical findings support the need for the requested home health care services because: Limited ability to care for self I certify that my clinical findings support that this patient is homebound because: Post-op weakness Juan Smith Jr. January 27, 2017 07:32
[2017-01-27 08:16] VITALS: BP 120/63; PULSE 68; RESP 16; TEMP 96.5; O2SAT 95
[2017-01-27] MEDS: DOCUSATE SODIUM 100 MG CAP PO SCH (09:25)
[2017-01-27] MEDS: PANTOPRAZOLE SOD 40 MG DELAYED RELEASE TAB PO SCH (09:25)
[2017-01-27] MEDS: SODIUM CHLORIDE 0.9% FLUSH 10 ML FLUSH IV FLUSH SCH (09:25)
[2017-01-27] MEDS: DILTIAZEM-CD 180 MG CAP ER PO SCH (09:26)
[2017-01-27] MEDS: METOPROLOL SUCCINATE 50 MG EXTENDED RELEASE TAB PO SCH (09:27)
[2017-01-27] MEDS: RAMIPRIL 5 MG CAP PO SCH (09:29)
--- NOTE | 2017-01-27 10:47 | HHI.DS ---
Discharge Summary Admission Date January 24, 2017 at 21:47 Discharge Date: January 27, 2017 Admitting Diagnosis right ankle fracture dislocation s/p fall (1) Fracture dislocation of right ankle ICD Code: S82.891A Diagnosis: Principal (2) DM (diabetes mellitus) ICD Code: E11.9 Diagnosis: Secondary Procedures ORIF right ankle trimalleolar fx Brief History - From Admission The patient is a 72 year old female patient with past medical history which includes diabetes mellitus insulin-dependent, hypertension, history of a basal cell carcinoma removed from the nose, history of SVT, hyperlipidemia, and acid reflux. Patient reports she stepped backward off of a curb when her shoe turned causing her to twist her ankle and fall to the ground. Per ER documentation the patient had notable deformity of the right ankle with severe pain and tingling in her toes. The patient is currently in a box splint. Reports pain is tolerable 4 out of 10 at this point after the morphine. Patient however has had nausea and vomiting after the morphine. Patient reports intact sensation left lower extremity. The patient denies hitting her head or losing consciousness during the fall. Patient also denies any chest pain, shortness of breath, fevers chills cough congestion changes in appetite changes in weight. CBC/BMP: 01/26/17 0552 01/26/17 0552 Significant Findings Laboratory Tests Test 01/24/17 01/25/17 01/26/17 21:15 06:44 05:52 White Blood Count 13.7 TH/MM3 12.6 TH/MM3 (4.0-11.0) (4.0-11.0) Neutrophils # (Auto) 9.0 TH/MM3 10.4 TH/MM3 (1.8-7.7) (1.8-7.7) Estimat Glomerular Filtration 56 ML/MIN (>89) 63 ML/MIN (>89) 67 ML/MIN (>89) Rate Random Glucose 122 MG/DL 216 MG/DL 284 MG/DL (74-106) (74-106) (74-106) Neutrophils (%) (Auto) 82.8 % (16.0-70.0) Hematocrit 34.5 % (35.0-46.0) Imaging Last Impressions Ankle X-Ray 01/25/17 0000 Signed Impressions: Service Date/Time: Wednesday, January 25, 2017 16:10 - CONCLUSION: Status post open rigid internal fixation. Juan Ha MD Chest X-Ray 01/24/17 2105 Signed Impressions: Service Date/Time: Tuesday, January 24, 2017 21:37 - CONCLUSION: No acute disease. Ritchie Vieira MD PE at Discharge GENERAL: This is a well-nourished, well-developed patient, in no apparent distress. CARDIOVASCULAR: Regular rate and rhythm without murmurs RESPIRATORY: Clear to auscultation. Breath sounds equal bilaterally. No wheezes GASTROINTESTINAL: Abdomen soft, non-tender, nondistended. No guarding. MUSCULOSKELETAL: Extremities without edema. Splint in place right lower extremity <2 sec cap refill and intact sensation. Able to wiggle toes on the right. NEUROLOGICAL: Awake and alert. Moves extremities well. Pt update on day of discharge Pt tells me that she had to take one norco for her pain instead of just plain tylenol. Currently her pain is controlled and she tolerating the norco well w no nausea or vomiting. Denies any CP/SOB comfortable being discharged today Hospital Course Right ankle fracture and dislocation -Right ankle x-ray reviewed and reveals: Fracture with dislocation of the right ankle -Bedside Closed reduction right ankle dislocation associated with fracture by ER physician -Orthopedic evaluated the pt and she is s/p ORIF right ankle trimalleolar fx POD 2 -pain controlled w tylenol, has other pain meds available prn. Pt Condition on Discharge: Stable Discharge Disposition: Disch w/ Home Health Serv Discharge Time: > 30 minutes Discharge Instructions DIET: Follow Instructions for: Heart Healthy Diet Activities you can perform: See Additionl Instruction Other Activity Instructions: Nonweightbearing right lower extremity, Maintain splint, Elevate Follow up Referrals: Orthopedics - 02/08/17 @ [facility] with Krishan Garcia MD Physician - 1 Week New Medications: Calcium Carbonate-Vitamin D (Calcium 600+D 200) 600-200 Mg-Unit Tab 1 TAB PO BID Nutritional Supplement Days 30 Ref 0 TAB Cholecalciferol (Vitamin D3) 2,000 Unit Cap 2000 UNITS PO DAILY Nutritional Supplement #56 Ref 0 CAP Ergocalciferol (Ergocalciferol) 50,000 Unit Cap 45858 UNITS PO Q7D Nutritional Supplement #56 CAP Hydrocodone-Acetaminophen (Drayton) 7.5-325 mg Tab 1 TAB PO Q4H PRN PAIN #60 Ref 0 TAB Sennosides-Docusate Sodium (Desire-Colace) 8.6-50 Mg Tab 1 TAB PO BID PRN Constipation #60 Ref 0 TAB Walker/Adult/Folding (Walker/Adult/Folding) 1 Mis Mis 1 EA .ROUTE DIRECTED #1 Ref 0 EA Continued Medications: Diltiazem ER 24 HR (Cartia Xt) 180 Mg Caper 180 MG PO DAILY #30 Ref 0 CAP Insulin Aspart Inj (Novolog Inj) 1,000 Unit/10 Ml Vial 12 UNITS SQ ACHS Max dose at bedtime ( ) units; sugars less than 70,(0) units; sugars 150-199,(2) units; sugars 200-249,(4) units; sugars 250-299,(7) units; sugars 300-349,(10) units; sugars greater than 349,(12)units Blood Sugar Management #10 Ref 0 ML Metoprolol Succinate ER 24 HR (Toprol XL) 100 Mg Tab 100 MG PO DAILY #30 Ref 0 TAB Omeprazole (Omeprazole) 40 Mg Cap 40 MG PO DAILY #30 Ref 0 CAP Potassium Chloride ER (Potassium Chloride ER) 10 Meq Tab 10 MEQ PO DAILY Electrolyte Replacement #30 Ref 0 TAB Ramipril (Altace) 5 Mg Cap 5 MG PO DAILY #30 Ref 0 CAP Henny Francois MD January 27, 2017 10:47
[2017-01-27] MEDS ORDERED: PERI8.6T PO (10:49)
[2017-01-27 12:15] VITALS: BP 127/70; PULSE 70; RESP 18; TEMP 97.2; O2SAT 97
[2017-01-27 16:01] VITALS: O2SAT 97
== END 2017-01-27 17:43 | disposition home health service (06) | DRG 494 ==
LOC: NEPC 20:05 → NEDA 21:47 → N06B 23:34
PROVIDERS: ADMIT Hospitalist; ATTEND Hospitalist
PROC: 0SSFXZZ Reposition Right Ankle Joint, External Approach (ICD-10-PCS; 2017-01-24)
PROC: 0QSJ04Z Reposition Right Fibula with Internal Fixation Device, Open Approach (ICD-10-PCS; 2017-01-25)
PROC: 0QHG04Z Insertion of Internal Fixation Device into Right Tibia, Open Approach (ICD-10-PCS; principal; 2017-01-25 15:12)
DX: S82.851A Displaced trimalleolar fracture of right lower leg, initial encounter for closed fracture (principal); E11.9 Type 2 diabetes mellitus without complications; I10 Essential (primary) hypertension; W01.0XXA Fall on same level from slipping, tripping and stumbling without subsequent striking against object, initial encounter; Y92.89 Other specified places as the place of occurrence of the external cause; E78.5 Hyperlipidemia, unspecified; K21.9 Gastro-esophageal reflux disease without esophagitis; E66.9 Obesity, unspecified; Z79.4 Long term (current) use of insulin; Z68.37 Body mass index [BMI] 37.0-37.9, adult
CPT/HCPCS: 28435; 71010; 73600; 73610; 76000; 80048; 82948; 85025; 85027; 85610; 85730; 93005; 94150; 96374; C1713; J0131; J1100; J1170; J1580; J1644; J1815; J2250; J2270; J2370; J2405; J2765; J3370; J7050; J7070; J8501